=== PATIENT | male | born 1955 | race Caucasian/White ===

== ENCOUNTER 2018-10-14 04:24 | Emergency (ER) | payer OTHER ==
[~2018-10-14] VITALS: Ht 185.4 cm; Wt 154.2 kg
[2018-10-14 04:29] VITALS: BP 203/114
--- NOTE | 2018-10-14 04:29 | NUR ---
TO BED #07 AMBULATORY
[2018-10-14] MEDS ORDERED: cloNIDine 0.1 MG TAB PO ONE (04:35)
[2018-10-14] MEDS ORDERED: SUMAtriptan 25 MG TAB PO ONE (04:35)
--- NOTE | 2018-10-14 04:45 | NUR ---
63 YO M BIB SELF AND PRESENTS TO ED C/O 03/26 TYLER AND SOB X 2 DAYS. PT HAS HX OF MIGRAINE TYLER'S. PT IS HYPERTENSIVE AT THIS TIME. DR. BRADLEY MADE AWARE. DENIES CP. BREATHING EVEN, UNLABORED. LUNGS CTA. ERMD TO SEE PT.
[2018-10-14] MEDS ORDERED: MORPHINE SULFATE 4 MG/ML SYR IM ONE (04:55)
[2018-10-14 05:35] VITALS: BP 145/93
--- NOTE | 2018-10-14 05:35 | NUR ---
Patient discharged with v/s stable. Written and verbal after care instructions given and explained. Patient alert, oriented and verbalized understanding of instructions. Ambulatory with steady gait. All questions addressed prior to discharge. ID band removed. Patient advised to follow up with PMD. Rx of Imitrex given. Patient educated on indication of medication including possible reaction and side effects. Opportunity to ask questions provided and answered.
== END 2018-10-14 05:35 | disposition home or self-care (01) ==
LOC: EDSEX 04:24 → MED 04:24
DX: G43.909 Migraine, unspecified, not intractable, without status migrainosus (principal); I10 Essential (primary) hypertension; E66.9 Obesity, unspecified; Z68.41 Body mass index [BMI] 40.0-44.9, adult
CPT/HCPCS: 96372; 99283; J2270

== ENCOUNTER 2019-01-19 19:58 | Emergency (ER) | payer OTHER ==
[~2019-01-19] VITALS: Ht 188 cm; Wt 154.8 kg
[2019-01-19 20:11] VITALS: BP 198/108
--- NOTE | 2019-01-19 20:29 | NUR ---
PT AMBULATED TO BED 06.
--- NOTE | 2019-01-19 20:30 | NUR ---
63 Y/O MALE PRESENTED TO ED, C/O HEADACHE 03/26. PT STATES THE PAIN STARTED THIS MORNING APPROXIMATELY AROUND 0400. PT STATES HE'S BEEN HAVING CONSTANT HEADACHES BUT UNABLE TO ALLEVIATE PAIN. NO COMPLAINTS OF DIZZINESS/LIGHTHEADEDNESS. PT ALERT TO PERSON, PLACE, TIME, EVENT. NO WEAKNESS. PT HAS HX OF HTN, COMPLIANT WITH MEDICATIONS. DR SEQUEIRA AWARE. WILL CONTINUE TO MONITOR.
[2019-01-19] MEDS ORDERED: cloNIDine 0.1 MG TAB PO ONE (20:35)
--- NOTE | 2019-01-19 20:37 | NUR ---
EKG PERFORMED AT BEDSIDE
--- NOTE | 2019-01-19 20:47 | NUR ---
Dr. Spencer examining patient.
[2019-01-19] MEDS ORDERED: DILTIAZEM 25 MG/5 ML VIAL IVP ONE ×2 (20:55→21:29)
--- NOTE | 2019-01-19 21:13 | NUR ---
PT TAKEN TO CT
--- NOTE | 2019-01-19 21:20 | NUR ---
PT RETURN FROM CT
--- NOTE | 2019-01-19 21:30 | NUR ---
PT IS AWAKE, LAYING ON BED. PT C/O OF HEADACHE 03/26. DR SEQUEIRA AWARE. WILL CONTINUE TO MONITOR.
[2019-01-19] MEDS ORDERED: MORPHINE SULFATE 2 MG/ML SYR IVP ONE (21:50)
--- NOTE | 2019-01-19 22:30 | NUR ---
PT AWAKE, SITTING ON BED. FRIEND AT BEDSIDE. PT C/O OF HEADACHE 03/26. DR SEQUEIRA AWARE. WILL CONTINUE TO MONITOR.
[2019-01-19] MEDS ORDERED: KETOROLAC 30 MG/ML VIAL IVP ONE (22:40)
[2019-01-19 23:04] VITALS: BP 172/105
--- NOTE | 2019-01-19 23:04 | NUR ---
PT DISCHARGED WITH PAPERWORK. RX TRAMADOL, EDUCATED PT REGARDING MEDICATION AND SIDE EFFECTS. EDUCATED PT REGARDING DISCHARGE DIAGNOSIS. PT VERBALIZED UNDERSTANDING OF TEACHING. PT VSS. ALL QUESTIONS ANSWERED.
== END 2019-01-19 23:04 | disposition home or self-care (01) ==
LOC: MED 19:58
DX: G43.909 Migraine, unspecified, not intractable, without status migrainosus (principal); I10 Essential (primary) hypertension
CPT/HCPCS: 70450; 93005; 96374; 96375; 99284; J1885; J2270; J3490